=== PATIENT | female | born 1970 | race Two or more races ===

== ENCOUNTER → 2016-11-21 | Outpatient (CLI) | payer BC ==
[~2016-11-21] MED LIST: ANTIVERT PO; PHENERGAN25 MG PO; ZANTAC150 M1 PO
--- NOTE | ~2016-11-21 | MY29 ---
[facility] A Service of [facility] RADIOLOGY TEXT RESULTS PATIENT: ANDREE SENA LOCATION: [facility] : 70 UNIT #: [id number] AGE: [address]: Angel Moulton MD SEX: F ORDER DR: [id number] [facility] [address] [facility] [address] [place], [place] [address] [id number] O MR#: [id number] Acc #: [id number] NAME: ANDREE SENA : 1970 SEX: F STUDY DATE/TIME: 11/21/2016 15:35 UNIT: [facility] ROOM: STUDY DESCRIPTION: [facility] SCREENING W/ CAD BILAT Attending Physician: Angel Moulton M.D. Referring Physician: Angel Moulton M.D. Ordering Physician: Angel Moulton M.D. Primary Care Physician: Angel Moulton M.D. MEDICAL IMAGING REPORT This report is preliminary unless electronic signature is present EXAM Bilateral digital screening mammogram with CAD. INDICATIONS Breast cancer screening. 46-year-old asymptomatic female. No personal or family history of breast cancer. COMPARISON STUDIES March 14, 2015, and December 19, 2012. FINDINGS There are scattered fibroglandular tissues. No suspicious findings are present. IMPRESSION No mammographic evidence of malignancy. Annual screening mammography and clinical breast exam are recommended. Patients over the age of 40 are entered into a reminder system with target due date for the next mammogram. A result letter will also be sent to the patient. BIRADS: 1 Negative. Dictated by... Kishore Hood M.D. THIS IS AN ELECTRONICALLY VERIFIED REPORT Kishore Hood M.D. at 11/26/2016 4:10 PM [facility] A Service of [facility] RADIOLOGY TEXT RESULTS PATIENT: ANDREE SENA LOCATION: [facility] : 70 UNIT #: [id number] AGE: [address]: Angel Moulton MD SEX: F ORDER DR: TD: 11/21/2016 23:43 JOB #: [id number] MEDICAL IMAGING REPORT Page 1 of 1 COPY
== END | disposition home or self-care (01) ==
LOC: CWCC 11-19 15:30
DX: Z12.31 Encounter for screening mammogram for malignant neoplasm of breast (principal)
CPT/HCPCS: G0202